=== PATIENT | female | born 1975 | race Caucasian/White ===

== ENCOUNTER → 2018-11-17 | Outpatient (REF) | payer OTHER | LOC: M SFHCLERA 10:31 | PROVIDERS: ATTEND Nurse Practitioner Family | DX: J02.9 Acute pharyngitis, unspecified (principal) ==

== ENCOUNTER → 2019-11-16 | Outpatient (REF) | payer OTHER | LOC: M SFHCLERA 18:32 | PROVIDERS: ATTEND Nurse Practitioner Family | DX: R68.89 Other general symptoms and signs (principal) ==